=== PATIENT | male | born 1990 | race African-American/Black ===

== ENCOUNTER 2016-11-29 09:35 | Emergency (ER) | payer MEDICAID ==
[~2016-11-29] VITALS: Ht 182.9 cm; Wt 66.0 kg
[2016-11-29] MEDS ORDERED: LIDOCAINE HCL 1% 20ML VIAL (Pyxis) INJ INFIL ONE (10:15)
[2016-11-29] MEDS ORDERED: CEFTRIAXONE SODIUM 250 MG/VIAL IM ONE (10:15)
[2016-11-29 11:01] LABS: GLUCOSE URINE NEGATIVE (NEGATIVE); KETONES URINE NEGATIVE (NEGATIVE); LEUKOCYTE ESTERASE URINE 2+ (NEGATIVE); NITRITE URINE NEGATIVE (NEGATIVE); OCCULT BLOOD URINE 1+ (NEGATIVE); PROTEIN URINE 1+ (NEGATIVE); SPECIFIC GRAVITY URINE 1.034 (1.005-1.030)
[2016-11-29 11:05] LABS: CLARITY URINE HAZY (CLEAR); COLOR URINE DARK YELLOW (YELLOW)
[2016-11-29 11:13] LABS: BACTERIA URINE 1+; YEAST URINE 1+
[2016-11-29 11:14] LABS: SQUAMOUS EPITHELIAL CELL URINE FEW /lpf (RARE/1+); WBC URINE 25-50 /hpf (0-2)
[2016-11-29 11:27] VITALS: BP 107/63
== END 2016-11-29 11:43 | disposition home or self-care (01) ==
LOC: ER 11:03
DX: R30.0 Dysuria (principal); F17.200 Nicotine dependence, unspecified, uncomplicated; F12.10 Cannabis abuse, uncomplicated
CPT/HCPCS: 81001; 96372; 99283; J0696; J3490; Z7610

== ENCOUNTER 2018-03-01 19:22 | Emergency (ER) | payer MEDICAID ==
[~2018-03-01] VITALS: Ht 175.3 cm; Wt 66.0 kg
[2018-03-01 20:20] VITALS: BP 130/62
== END 2018-03-02 01:22 | disposition left against medical advice (07) ==
LOC: ER 21:35
DX: R06.02 Shortness of breath (principal); Z53.21 Procedure and treatment not carried out due to patient leaving prior to being seen by health care provider

== ENCOUNTER 2022-02-18 19:42 | Emergency (ER) | payer SELFPAY ==
[~2022-02-18] VITALS: Ht 182.9 cm; Wt 65.1 kg
[2022-02-18 19:43] VITALS: BP 114/64
[2022-02-18] MEDS ORDERED: NIZOS TP (22:40)
== END 2022-02-18 23:04 | disposition home or self-care (01) ==
LOC: ER 19:42
DX: L21.9 Seborrheic dermatitis, unspecified (principal); F12.10 Cannabis abuse, uncomplicated; J45.909 Unspecified asthma, uncomplicated
CPT/HCPCS: 99283

== ENCOUNTER 2023-09-25 17:30 | Emergency (ER) | payer SELFPAY ==
[~2023-09-25] VITALS: Ht 182.9 cm; Wt 65.9 kg
[~2023-09-25 17:30] MED LIST: NIZOS TP
[2023-09-25 17:41] VITALS: TEMP 97.9; O2SAT 100
[2023-09-25] MEDS ORDERED: HYDROCODONE/ACETAMINOPHEN 5/325MG TABLET PO ONE (19:30)
[2023-09-25] MEDS ORDERED: KETOROLAC 30MG/ML VIAL IM ONE (19:30)
[2023-09-25] MEDS ORDERED: IBUP-2030 MT (22:14)
[2023-09-25] MEDS: HYDROCODONE/ACETAMINOPHEN 5/325MG TABLET PO NR (22:30)
[2023-09-25 23:20] VITALS: BP 106/69; PULSE 80; RESP 18
[2023-09-25] MEDS: KETOROLAC 30MG/ML VIAL IM NR (23:20)
== END 2023-09-26 02:54 | disposition home or self-care (01) ==
LOC: ER 18:35
DX: M54.2 Cervicalgia (principal); S09.90XA Unspecified injury of head, initial encounter; J45.909 Unspecified asthma, uncomplicated; Z98.890 Other specified postprocedural states; Y93.89 Activity, other specified; Y92.89 Other specified places as the place of occurrence of the external cause; Y99.8 Other external cause status
CPT/HCPCS: 70450; 72125; 96372; 99285; J1885; Z7610 ×2